=== PATIENT | male | born 1960 | race Two or more races ===

== ENCOUNTER 2016-06-16 20:39 | Inpatient (IN) | payer OTHER ==
[2016-06-16 21:05] VITALS: TEMP 97.5; BMI 15.6
[2016-06-16 21:55] LABS: URINE APPEARANCE CLEAR; URINE BILIRUBIN NEGATIVE (NEGATIVE); URINE BLOOD NEGATIVE (NEGATIVE); URINE COLOR STRAW; URINE GLUCOSE (UA) NEGATIVE (NEGATIVE); URINE KETONE NEGATIVE (NEGATIVE); URINE LEUK ESTERASE NEGATIVE (NEGATIVE); URINE NITRITE NEGATIVE (NEGATIVE); URINE PROTEIN NEGATIVE (NEGATIVE); URINE UROBILINOGEN NEGATIVE E.U./dl (0.2-1.0)
--- NOTE | 2016-06-16 22:00 | PDOC ---
History of Present Illness - History of Present Illness Initial Comments: 06/16/16 23:34 Patient is a 55 year old male with significant medical hx of borderline diabetes , HIV (CD4 count ~ 100), unknown VL, not on HAART therapy, Hep C, depression, and xanax / klonopin dependence who has been sent to the ED from [address] [place] [address] for one week of draining abdominal wounds. The patient was recently discharged after being admitted at [facility] for several days. There he received IV antibiotics and an abdomen/pelvis CT with noted hepatomegaly, kidney stones and gallstones. The patient was discharged on clindamycin and keflex, however the patient has not been compliant with his medications and states that he has not been able to pick them up from the pharmacy. He was then sent to [address] [place] [address] for heroin detox and was then referred to the ED for his draining wounds. The patients only complaint is abdominal pain from the wound drainage. The patient denies fever, chills, nausea, and vomiting. The patient does not have any primary doctors. <Heide Francis - Last Filed: 06/16/16 23:34> - General History Source: Patient Exam Limitations: No Limitations <Aubrey Brennan - Last Filed: 06/17/16 00:22> - General Chief Complaint: Pain Stated Complaint: ABDOMINAL PAIN Time Seen by Provider: 06/16/16 21:05 Past History <Heide Francis - Last Filed: 06/16/16 23:34> - Past Medical History Anemia: No Asthma: No Cardiac Disorders: No COPD: No Diabetes: Yes (Borderline diabetes no meds.) GI Disorders: No Disorders: No HTN: No Kidney Stones: No Suicide Attempt (Hx): No (DENIES) Seizures: No Other medical history: HIV - Reproductive History Testicular Surgery: No - Psycho/Social/Smoking Cessation Hx Anxiety: Yes Suicidal Ideation: No Smoking History: Former smoker Have you smoked in the past 12 months: No Number of Cigarettes Smoked Daily: 40 Cigars Per Day: 0 Information on smoking cessation initiated: No 'Breaking Loose' booklet given: 06/16/16 Hx Alcohol Use: No (DENIES) Drug/Substance Use Hx: Yes (XANAX/KLONOPIN) Substance Use Type: Tranquilizers Hx Substance Use Treatment: Yes ([facility], METHADONE 30 MG PO DAILY. LAST DOSE 01/06/15) <Aubrey Brennan - Last Filed: 06/17/16 00:22> - Past Medical History Allergies/Adverse Reactions: Allergies Allergy/AdvReac Type Severity Reaction Status Date / Time aspirin Allergy Severe Swelling Verified 01/06/15 11:07 Home Medications: Ambulatory Orders NK [No Known Home Medication] 01/06/15 Review of Systems - Review of Systems Comments:: 06/16/16 23:34 GENERAL/CONSTITUTIONAL: No fever or chills. No weakness. HEAD, EYES, EARS, NOSE AND THROAT: No change in vision. No ear pain or discharge. No sore throat. CARDIOVASCULAR: No chest pain or shortness of breath. RESPIRATORY: No cough, wheezing, or hemoptysis. GASTROINTESTINAL: Abdominal pain, abdominal wound drainage. No nausea, vomiting , diarrhea or constipation. GENITOURINARY: No dysuria, frequency, or change in urination. MUSCULOSKELETAL: No joint or muscle swelling or pain. No neck or back pain. SKIN: No rash NEUROLOGIC: No headache, vertigo, loss of consciousness, or change in strength/ sensation. <Heide Francis - Last Filed: 06/16/16 23:34> *Physical Exam - Vital Signs Last Vital Signs Temp Pulse Resp BP Pulse Ox 97.5 F L 52 L 17 143/80 100 06/16/16 20:50 06/16/16 20:50 06/16/16 20:50 06/16/16 20:50 06/16/16 20:50 - Physical Exam Comments: 06/16/16 23:35 GENERAL: Thin. Awake, alert, and fully oriented, in no acute distress HEAD: No signs of trauma EYES: PERRLA, EOMI, sclera anicteric, conjunctiva clear ENT: Auricles normal inspection, hearing grossly normal, nares patent, oropharynx clear without exudates. Moist mucosa NECK: Normal ROM, supple, no lymphadenopathy, JVD, or masses LUNGS: Breath sounds equal, clear to auscultation bilaterally. No wheezes, and no crackles HEART: Regular rate and rhythm, normal S1 and S2, no murmurs, rubs or gallops ABDOMEN: Two abdominal wound ulcers and drainages approximately 2cm x 3cm draining and tender. Soft, normoactive bowel sounds. EXTREMITIES: Normal range of motion, no edema. No clubbing or cyanosis. No cords, erythema, or tenderness NEUROLOGICAL: Cranial nerves II through XII grossly intact. Normal speech, normal gait SKIN: Warm, Dry, normal turgor, no rashes or lesions noted. ENDOCRINE: No increased thirst. No abnormal weight change. HEMATOLOGIC/LYMPHATIC: No anemia, easy bleeding, or history of blood clots. ALLERGIC/IMMUNOLOGIC: No hives or skin allergy. <Heide Francis - Last Filed: 06/16/16 23:34> - Vital Signs Last Vital Signs Temp Pulse Resp BP Pulse Ox 97.5 F L 52 L 17 143/80 100 06/16/16 20:50 06/16/16 20:50 06/16/16 20:50 06/16/16 20:50 06/16/16 20:50 <Aubrey Brennan - Last Filed: 06/17/16 00:22> Heart Score/ECG Review #1 ECG reviewed & interpreted by me at: 22:10 06/16/16 23:32 NSr 46, no std/munir, T wave flat avL, QTC 416 msec <Aubrey Brennan - Last Filed: 06/17/16 00:22> ED Treatment Course - LABORATORY CBC & Chemistry Diagram: 06/16/16 21:45 06/16/16 21:45 - ADDITIONAL ORDERS Additional order review: Laboratory Results 06/16/16 06/16/16 06/16/16 21:45 21:45 21:40 INR 1.32 H PTT (Actin FS) 39.4 H Sodium 141 Potassium 4.4 Chloride 106 Carbon Dioxide 28 Anion Gap 7 L BUN 15 D Creatinine 0.6 L Creat Clearance w eGFR > 60 Random Glucose 97 D Lactic Acid 1.764 Calcium 8.1 L Total Bilirubin 0.4 D AST 42 H D ALT 32 Alkaline Phosphatase 116 Creatine Kinase 52 Troponin I < 0.02 Total Protein 6.7 Albumin 2.9 L Urine Color Urine Appearance Urine pH Ur Specific [place] Urine Protein Urine Glucose (UA) Urine Ketones Urine Blood Urine Nitrite Urine Bilirubin Urine Urobilinogen Ur Leukocyte Esterase 06/16/16 21:35 INR PTT (Actin FS) Sodium Potassium Chloride Carbon Dioxide Anion Gap BUN Creatinine Creat Clearance w eGFR Random Glucose Lactic Acid Calcium Total Bilirubin AST ALT Alkaline Phosphatase Creatine Kinase Troponin I Total Protein Albumin Urine Color Straw Urine Appearance Clear Urine pH 6.0 Ur Specific [place] 1.009 Urine Protein Negative Urine Glucose (UA) Negative Urine Ketones Negative Urine Blood Negative Urine Nitrite Negative Urine Bilirubin Negative Urine Urobilinogen Negative Ur Leukocyte Esterase Negative 06/16/16 21:45 RBC 4.22 MCV 88.0 MCHC 33.7 RDW 13.2 MPV 8.9 D Neutrophils % 49.8 Lymphocytes % 26.9 Monocytes % 12.5 H Eosinophils % 9.7 H Basophils % 1.1 <Heide Francis - Last Filed: 06/16/16 23:34> - LABORATORY CBC & Chemistry Diagram: 06/16/16 21:45 06/16/16 21:45 - ADDITIONAL ORDERS Additional order review: Laboratory Results 06/16/16 21:35 Urine Color Straw Urine Appearance Clear Urine pH 6.0 Ur Specific [place] 1.009 Urine Protein Negative Urine Glucose (UA) Negative Urine Ketones Negative Urine Blood Negative Urine Nitrite Negative Urine Bilirubin Negative Urine Urobilinogen Negative Ur Leukocyte Esterase Negative - RADIOLOGY Radiology Studies Ordered: Category Date Time Status CHEST X-RAY PORTABLE* [RAD] Stat Radiology 06/16/16 21:16 Taken <Aubrey Brennan - Last Filed: 06/17/16 00:22> Medical Decision Making - Medical Decision Making 06/16/16 23:07 A portion of this note was documented by scribe services under my direction. I have reviewed the details of the note, within reason, and agree with the documentation with the following case summary and management plan written by me. Patient treated in the ED. Nursing notes are reviewed and incorporated into the medical decision-making. Vital signs reviewed. Peripheral IV access obtained by the nurse, laboratory studies are drawn and sent, reviewed and interpreted by myself. Vital Signs Temp Pulse Resp BP Pulse Ox 97.5 F L 52 L 17 143/80 100 06/16/16 20:50 06/16/16 20:50 06/16/16 20:50 06/16/16 20:50 06/16/16 20:50 55-year-old male with past medical history of HIV, CD4 count ~100, unknown VL, not on HAART therapy, Hepatitis C presents from [address] [place] [address] for draining wounds. Patient was recently emitted for several days at [facility]. I had contacted Dr. Jose Lo over at [facility]. Reports that the patient had a CAT scan abdomen pelvis performed. This was done on June 15 head demonstrated skin thickening and phlegmon with foci punctate of air in the skin but not in the abdomen. Patient also noted to have hepatomegaly, kidney stones and gallstones. Patient was then placed into the observation unit and was altered discharge and clindamycin and Keflex. The patient however, is not adherent to his medications does not remember. Patient reports that he has not been able to potato picker his medications. Patient was discharged sent to [address] [place] [address] for detox from heroin. However, the patient wounds were sent to the ER here for evaluation. He reports that this is going on for the last week. He is interested in going back on HAART therapy but has no doctors. Laboratory data reviewed. This shows no acute findings at this time. The patient appears chronically ill but nontoxic. We'll consult infectious disease in regards to disposition. 06/17/16 00:20 CBC, BMP 06/16/16 21:45 06/16/16 21:45 CMP Sodium 141 mmol/L (136-145) 06/16/16 21:45 Potassium 4.4 mmol/L (3.5-5.1) 06/16/16 21:45 Chloride 106 mmol/L (98-107) 06/16/16 21:45 Carbon Dioxide 28 mmol/L (21-32) 06/16/16 21:45 Anion Gap 7 (8-16) L 06/16/16 21:45 BUN 15 mg/dL (7-18) D 06/16/16 21:45 Creatinine 0.6 mg/dL (0.7-1.3) L 06/16/16 21:45 Creat Clearance w eGFR > 60 (>60) 06/16/16 21:45 Random Glucose 97 mg/dL (74-106) D 06/16/16 21:45 Lactic Acid 1.764 mmol/L (0.4-2.0) 06/16/16 21:45 Calcium 8.1 mg/dL (8.5-10.1) L 06/16/16 21:45 Total Bilirubin 0.4 mg/dL (0.2-1.0) D 06/16/16 21:45 AST 42 U/L (15-37) H D 06/16/16 21:45 ALT 32 U/L (12-78) 06/16/16 21:45 Alkaline Phosphatase 116 U/L (45-117) 06/16/16 21:45 Creatine Kinase 52 IU/L (39-308) 06/16/16 21:45 Troponin I < 0.02 ng/ml (0.00-0.05) 06/16/16 21:45 Total Protein 6.7 g/dl (6.4-8.2) 06/16/16 21:45 Albumin 2.9 g/dl (3.4-5.0) L 06/16/16 21:45 The patient has wounds, with AIDS (given CD4 ~100). The patient has poor follow up and will likely not get better with HAART therapy and appropriate antibiotics. He is not a reliable patient and would benefit from inpatient management. Paged Dr. Goldstein, awaiting response. Case discussed with [facility] hospitalist. Will admit to med/surg. Case discussed in detail with admitting physician including history, physical exam and ancillary studies. Admitting physician has assumed care for the patient, will follow all pending diagnostics and will complete the evaluation and treatment. <Aubrey Brennan - Last Filed: 06/17/16 00:22> *DC/Admit/Observation/Transfer - Attestations Scribe Attestion: 06/16/16 23:36 Documentation prepared by Heide Francis, acting as medical typist for Aubrey Brennan MD. <Heide Francis - Last Filed: 06/16/16 23:34> - Discharge Dispostion Admit: Yes <Aubrey Brennan - Last Filed: 06/17/16 00:22> Diagnosis at time of Disposition: Acquired immunodeficiency syndrome, Ulcerative lesion - Discharge Dispostion Condition at time of disposition: Fair
[2016-06-16 22:09] LABS: BASOPHIL 1.1 % (0-2.0); EOSINOPHIL 9.7 % (0-4.5); MCH 29.7 pg (25.7-33.7); MCHC 33.7 g/dl (32.0-35.9); MEAN PLT VOLUME 8.9 fl (7.5-11.1); NEUTROPHILS 49.8 % (42.8-82.8); PLATELET COUNT 79 K/MM3 (134-434); RDW 13.2 % (11.9-15.9); WHITE BLOOD COUNT 2.9 K/mm3 (4.0-10.0)
[2016-06-16 22:25] LABS: INR 1.32 (0.82-1.09); PROTHROMBIN TIME (PATIENT) 14.6 SEC (9.98-11.88)
[2016-06-16 22:28] LABS: ACTIVATED PTT 39.4 SECONDS (26.9-34.4)
[2016-06-16 22:31] LABS: ALBUMIN 2.9 g/dl (3.4-5.0); ANION GAP 7 (8-16); BILIRUBIN,TOTAL 0.4 mg/dL (0.2-1.0); CALCIUM 8.1 mg/dL (8.5-10.1); CO2 28 mmol/L (21-32); CREATININE 0.6 mg/dL (0.7-1.3); GLUCOSE,RANDOM 97 mg/dL (74-106); SGOT/AST 42 U/L (15-37); SGPT/ALT 32 U/L (12-78); TOT PROT 6.7 g/dl (6.4-8.2)
[2016-06-16 22:34] LABS: ALK PHOS 116 U/L (45-117); TROPONIN I < 0.02 ng/ml (0.00-0.05)
--- NOTE | 2016-06-17 00:35 | HP ---
Addendum entered and electronically signed by Tushar Ivory RES 06/17/16 04:17 : Abdominal abscess entered in error. Please note I meant to write Abdominal wound. Original Note: CHIEF COMPLAINT: abdominal abscess PCP: no PCP HISTORY OF PRESENT ILLNESS: 55 y/o M w/PMH of heroin use, HIV (last CD4 unknown as per pt/not on HAART), Hep C, depression, xanax and klonopin dependance, presents from [facility] ( where he was getting heroin detox) for abdominal abscess that is draining. Pt was recently discharged from [facility] where he was given IV abx and d/c'd with keflex and clinda but pt did not fill prescription. G+ cocci were found in abd culture at [facility]. Pt currently denies N/V/F/C, abdominal pain, CP, SOB. He does not know how long he has had the abscess for and states he does not remember what may have caused the abscess. ER course was notable for: (1) CXR (2) (3) PAST MEDICAL HISTORY: HIV, heroin use Social History: Smokinppd Alcohol: denies Drugs: heroin, xanax, klonopin Family History: non-contributory Allergies aspirin Allergy (Severe, Verified 01/06/15 11:07) Swelling HOME MEDICATIONS: Home Medications Medication Instructions Recorded NK [No Known Home Medication] 01/06/15 REVIEW OF SYSTEMS CONSTITUTIONAL: Absent: fever, chills, diaphoresis, generalized weakness, malaise, loss of appetite, weight change HEENT: Absent: rhinorrhea, nasal congestion, throat pain, throat swelling, difficulty swallowing, mouth swelling, ear pain, eye pain, visual changes CARDIOVASCULAR: Absent: chest pain, syncope, palpitations, irregular heart rate, lightheadedness , peripheral edema RESPIRATORY: Absent: cough, shortness of breath, dyspnea with exertion, orthopnea, wheezing, stridor, hemoptysis GASTROINTESTINAL: Absent: abdominal pain, abdominal distension, nausea, vomiting, diarrhea, constipation, melena, hematochezia GENITOURINARY: Absent: dysuria, frequency, urgency, hesitancy, hematuria, flank pain, genital pain MUSCULOSKELETAL: Absent: myalgia, arthralgia, joint swelling, back pain, neck pain SKIN: Absent: rash, itching, pallor HEMATOLOGIC/IMMUNOLOGIC: Absent: easy bleeding, easy bruising, lymphadenopathy, frequent infections ENDOCRINE: Absent: unexplained weight gain, unexplained weight loss, heat intolerance, cold intolerance NEUROLOGIC: Absent: headache, focal weakness or paresthesias, dizziness, unsteady gait, seizure, mental status changes, bladder or bowel incontinence PSYCHIATRIC: Absent: anxiety, depression, suicidal or homicidal ideation, hallucinations. PHYSICAL EXAMINATION Vital Signs - 24 hr 06/16/16 20:50 Temperature 97.5 F L Pulse Rate 52 L Respiratory 17 Rate Blood Pressure 143/80 O2 Sat by Pulse 100 Oximetry (%) GENERAL: Awake, alert, and fully oriented, cachetic. Does not respond to all questions asked, somewhat uncooperative. HEAD: Normal with no signs of trauma. EYES: sclera anicteric, conjunctiva clear. No lid lag. EARS, NOSE, THROAT: Ears normal, nares patent, Moist mucous membranes. LUNGS: Breath sounds equal, clear to auscultation bilaterally. No wheezes, and no crackles. No accessory muscle use. HEART: Regular rate and rhythm, normal S1 and S2 without murmur, rub or gallop. ABDOMEN: 2 abscesses noted - L sided one is approx 1.5inches in diameter and R sided one is appox 1 inch in diameter both draining sanguineous fluid. MUSCULOSKELETAL: Normal range of motion at all joints. No bony deformities or tenderness. LOWER EXTREMITIES: 2+ pulses, warm, well-perfused. No calf tenderness. No peripheral edema. NEUROLOGICAL: gait not observed PSYCHIATRIC: Does not respond to all questions asked. SKIN: Warm, dry, normal turgor, lesions as noted in abdomen above, normal capillary refill. Laboratory Results - last 24 hr 06/16/16 06/16/16 06/16/16 21:35 21:40 21:45 WBC 2.9 L D RBC 4.22 Hgb 12.5 Hct 37.1 MCV 88.0 MCHC 33.7 RDW 13.2 Plt Count 79 L MPV 8.9 D Neutrophils % 49.8 Lymphocytes % 26.9 Monocytes % 12.5 H Eosinophils % 9.7 H Basophils % 1.1 INR 1.32 H PTT (Actin FS) 39.4 H Sodium Potassium Chloride Carbon Dioxide Anion Gap BUN Creatinine Creat Clearance w eGFR Random Glucose Lactic Acid Calcium Total Bilirubin AST ALT Alkaline Phosphatase Creatine Kinase Troponin I Total Protein Albumin Urine Color Straw Urine Appearance Clear Urine pH 6.0 Ur Specific [place] 1.009 Urine Protein Negative Urine Glucose (UA) Negative Urine Ketones Negative Urine Blood Negative Urine Nitrite Negative Urine Bilirubin Negative Urine Urobilinogen Negative Ur Leukocyte Esterase Negative 06/16/16 06/16/16 21:45 21:45 WBC RBC Hgb Hct MCV MCHC RDW Plt Count MPV Neutrophils % Lymphocytes % Monocytes % Eosinophils % Basophils % INR PTT (Actin FS) Sodium 141 Potassium 4.4 Chloride 106 Carbon Dioxide 28 Anion Gap 7 L BUN 15 D Creatinine 0.6 L Creat Clearance w eGFR > 60 Random Glucose 97 D Lactic Acid 1.764 Calcium 8.1 L Total Bilirubin 0.4 D AST 42 H D ALT 32 Alkaline Phosphatase 116 Creatine Kinase 52 Troponin I < 0.02 Total Protein 6.7 Albumin 2.9 L Urine Color Urine Appearance Urine pH Ur Specific [place] Urine Protein Urine Glucose (UA) Urine Ketones Urine Blood Urine Nitrite Urine Bilirubin Urine Urobilinogen Ur Leukocyte Esterase ASSESSMENT/PLAN: 55 y/o M w/PMH of heroin use, HIV (last CD4 unknown as per pt/not on HAART), Hep C, depression, xanax and klonopin dependance, presents from [facility] ( where he was getting heroin detox) for abdominal abscess that is draining. -Abdominal abscess -clindamycin po 300 mg q6h for 7 days -appears to be a chronic wound. -wound dressing daily to be done by patient when at [facility]/at home -no wbc count, lactic acid 1.764 -G+ cocci in abd wound cx in [facility] -HIV -unknown cd4 count as per pt, not on haart -bactrim 160 mg po qd for PCP ppx -JOSEFINA Casiano/Dr. Jaimes as outpatient -Heroin use -Detox at [facility] -Dispo: -To be discharged to [facility] where pt is to do daily wound dressing. He is to take clinda 300 q6h for 7 days for abd wound. [facility] f/u after d/c from hospital during this admission. Visit type - Emergency Visit Emergency Visit: Yes Care time: The patient presented to the Emergency Department on the above date and was hospitalized for further evaluation of their emergent condition. - New Patient This patient is new to me today: Yes Date on this admission: 06/17/16 - Critical Care Critical Care patient: No
--- NOTE | 2016-06-17 00:36 | PN ---
<Haley Andino - Last Filed: 06/17/16 00:36> Teaching Attending Note Name of Resident: Tushar Ivory <Maura Chicas - Last Filed: 06/17/16 04:15> Teaching Attending Note ATTENDING PHYSICIAN STATEMENT I saw and evaluated the patient. I reviewed the resident's note and discussed the case with the resident. I agree with the resident's findings and plan as documented. SUBJECTIVE: The patient is a 55 yo M with a PMHx of HIV/AIDs (last known CD4 100), sent in from [address] [place] [address] who presented to the ED with weeping abdominal wounds for the past one week. The patient was recently discharged from [facility] several days ago for the same complaint where he received IV antibiotics and Abdomen/pelvis CT scan. The patient was prescribed however did not comply with her antibiotics(Clindamycin and Keflex). The patients only complaint is abdominal pain from the wound drainage. The patient denies fever, chills, nausea , and vomiting. Patient is uncooperative and theefore limited history available. History taken from ED documentation and as per conversation with [facility] ED physician who reviewed patient's recent stay. PMHx: heroin abuse, borderline diabetes, unknown VL, Hepatitis C, depression, xanax and klonopin dependence PSHx: None Social Hx: Heroin abuse OBJECTIVE: Last Vital Signs Temp Pulse Resp BP Pulse Ox 97.5 F L 52 L 17 143/80 100 06/16/16 20:50 06/16/16 20:50 06/16/16 20:50 06/16/16 20:50 06/16/16 20:50 GENERAL: +Cachectic.Awake, alert, and fully oriented, in no acute distress HEENT: + Temporal wasting. Atraumatic. PERRLA, EOMI. Moist mucosa. No JVD LUNGS: No distress, speaks full sentences, clear to auscultation bilaterally HEART: Regular rate and rhythm, normal S1 and S2, no murmurs, rubs or gallops, peripheral pulses normal and equal bilaterally. ABDOMEN: + 2 abdominal wall wounds noted: L sided one is 1.5 inches in diameter and R sided wound 1 inch in diameter. Soft, nontender, normoactive bowel sounds. No guarding, no rebound. No masses EXTREMITIES: Normal inspection, Normal range of motion, no edema. No clubbing or cyanosis. NEUROLOGICAL: Cranial nerves II through XII grossly intact. Normal speech, gait deferred. No focal sensorimotor deficits SKIN: Warm, Dry, normal turgor, no rashes or lesions noted. CBCD WBC 2.9 K/mm3 (4.0-10.0) L D 06/16/16 21:45 RBC 4.22 M/mm3 (4.00-5.60) 06/16/16 21:45 Hgb 12.5 GM/dL (11.7-16.9) 06/16/16 21:45 Hct 37.1 % (35.4-49) 06/16/16 21:45 MCV 88.0 fl (80-96) 06/16/16 21:45 MCHC 33.7 g/dl (32.0-35.9) 06/16/16 21:45 RDW 13.2 % (11.9-15.9) 06/16/16 21:45 Plt Count 79 K/MM3 (134-434) L 06/16/16 21:45 MPV 8.9 fl (7.5-11.1) D 06/16/16 21:45 CMP Sodium 141 mmol/L (136-145) 06/16/16 21:45 Potassium 4.4 mmol/L (3.5-5.1) 06/16/16 21:45 Chloride 106 mmol/L (98-107) 06/16/16 21:45 Carbon Dioxide 28 mmol/L (21-32) 06/16/16 21:45 Anion Gap 7 (8-16) L 06/16/16 21:45 BUN 15 mg/dL (7-18) D 06/16/16 21:45 Creatinine 0.6 mg/dL (0.7-1.3) L 06/16/16 21:45 Creat Clearance w eGFR > 60 (>60) 06/16/16 21:45 Calcium 8.1 mg/dL (8.5-10.1) L 06/16/16 21:45 Total Bilirubin 0.4 mg/dL (0.2-1.0) D 06/16/16 21:45 AST 42 U/L (15-37) H D 06/16/16 21:45 ALT 32 U/L (12-78) 06/16/16 21:45 Alkaline Phosphatase 116 U/L (45-117) 06/16/16 21:45 Total Protein 6.7 g/dl (6.4-8.2) 06/16/16 21:45 Albumin 2.9 g/dl (3.4-5.0) L 06/16/16 21:45 ASSESSMENT AND PLAN: The patient is a 55 yo M with a PMHx of HIV (CD4 count ~100) who presents with abdominal wounds. - Bactrum 160 mg daily for prophylaxis against PCP - Clindamycin 300 mg Q6 for 7 days - Patient unsure of last CD4 count - Daily wound care-- Keep area dry and clean - Refer to ID clinic at the [facility] and treat for HIV. Documentation prepared by Maura Chicas, acting as medical records library professor for Haley Andino MD.
[2016-06-17 01:32] VITALS: BP 149/85; PULSE 73
--- NOTE | 2016-06-17 01:44 | DS ---
Physical Exam: SUBJECTIVE: Patient seen and examined see H&P OBJECTIVE: Vital Signs Period Temp Pulse Resp BP Sys/Palmer Pulse Ox Last 24 Hr 97.5 F 52 17 143/80 100 PHYSICAL EXAM GENERAL: The patient is awake, alert, and fully oriented, in no acute distress. sleeping but arousable, slightly uncooperative. cachetic. HEAD: Normal with no signs of trauma.temporal wasting. EYES: PERRL, extraocular movements intact, sclera anicteric, conjunctiva clear. ENT: Ears normal, nares patent, oropharynx clear without exudates, moist mucous membranes. NECK: Trachea midline, full range of motion, supple. LUNGS: Breath sounds equal, clear to auscultation bilaterally, no wheezes, no crackles, no accessory muscle use. HEART: Regular rate and rhythm, S1, S2 without murmur, rub or gallop. ABDOMEN: 2 wounds ( LLQ 4 cm diameter and RLL 2.5 cm )to muscle, with granulation and serous drainage and hyperpigmented around wound. Soft, nontender , nondistended, normoactive bowel sounds, no guarding, no rebound, no hepatosplenomegaly, no masses. EXTREMITIES: 2+ pulses, warm, well-perfused, no edema. NEUROLOGICAL: Cranial nerves II through XII grossly intact. Normal speech, gait not observed. PSYCH: Normal mood, normal affect. SKIN: Warm, dry, normal turgor, no rashes or lesions noted. LABS Laboratory Results - last 24 hr 06/16/16 06/16/16 06/16/16 21:35 21:40 21:45 WBC 2.9 L D RBC 4.22 Hgb 12.5 Hct 37.1 MCV 88.0 MCHC 33.7 RDW 13.2 Plt Count 79 L MPV 8.9 D Neutrophils % 49.8 Lymphocytes % 26.9 Monocytes % 12.5 H Eosinophils % 9.7 H Basophils % 1.1 INR 1.32 H PTT (Actin FS) 39.4 H Sodium Potassium Chloride Carbon Dioxide Anion Gap BUN Creatinine Creat Clearance w eGFR Random Glucose Lactic Acid Calcium Total Bilirubin AST ALT Alkaline Phosphatase Creatine Kinase Troponin I Total Protein Albumin Urine Color Straw Urine Appearance Clear Urine pH 6.0 Ur Specific [place] 1.009 Urine Protein Negative Urine Glucose (UA) Negative Urine Ketones Negative Urine Blood Negative Urine Nitrite Negative Urine Bilirubin Negative Urine Urobilinogen Negative Ur Leukocyte Esterase Negative 06/16/16 06/16/16 21:45 21:45 WBC RBC Hgb Hct MCV MCHC RDW Plt Count MPV Neutrophils % Lymphocytes % Monocytes % Eosinophils % Basophils % INR PTT (Actin FS) Sodium 141 Potassium 4.4 Chloride 106 Carbon Dioxide 28 Anion Gap 7 L BUN 15 D Creatinine 0.6 L Creat Clearance w eGFR > 60 Random Glucose 97 D Lactic Acid 1.764 Calcium 8.1 L Total Bilirubin 0.4 D AST 42 H D ALT 32 Alkaline Phosphatase 116 Creatine Kinase 52 Troponin I < 0.02 Total Protein 6.7 Albumin 2.9 L Urine Color Urine Appearance Urine pH Ur Specific [place] Urine Protein Urine Glucose (UA) Urine Ketones Urine Blood Urine Nitrite Urine Bilirubin Urine Urobilinogen Ur Leukocyte Esterase HOSPITAL COURSE: [facility] called and chart reviewed, patient had WBC 3.3, (06/15/2016 ) blood cultures was Gram positive cocci in clusters and was given Clindamycin and Keflex. Repeat labs WBC 2.9. Patient discharged to [facility]. Date of Admission:06/16/16 Date of Discharge: 06/17/16 Minutes to complete discharge: 55 Discharge Summary Reason For Visit: ABDOMINAL PAIN Current Active Problems AIDS (Acute) Ulcer (Acute) Condition: Fair - Instructions Diet, Activity, Other Instructions: Patient discharged and transferred to [facility] with referral to [place] doctor/[facility] for evaluation and treatment of HIV/AIDS. [id number]_SMX 160mg daily Clindamycin 300mg po QID for 7 days. Daily wound dressing and keep dry. Referrals: Criss Jaimes MD [Staff Physician] - Disposition: TRANSFER ACUTE CARE/OTHER HOSP - Home Medications Comprehensive Discharge Medication List: Ambulatory Orders Clindamycin [Cleocin -] 300 mg PO Q6HPO #28 capsule 06/17/16 Sulfamethoxazole/Trimethoprim [Bactrim Ds Tablet] 1 each PO DAILY #90 tablet Problem List - Problems (1) Open abdominal wall wound Code(s): S31.109A - UNSP OPN WND ABD WALL, UNSP Q W/O PENET PERIT CAV, INIT Qualifiers: Encounter type: initial encounter Qualified Code(s): S31.109A - Unspecified open wound of abdominal wall, unspecified quadrant without penetration into peritoneal cavity, initial encounter This patient is new to me today: Yes Date on this admission: 06/17/16 Emergency Visit: Yes Care time: The patient presented to the Emergency Department on the above date and was hospitalized for further evaluation of their emergent condition. Critical Care patient: No - Discharge Referral [facility]erred to [facility] No
--- NOTE | 2016-06-17 09:39 | EKG ---
Test Reason : Blood Pressure : / mmHG Vent. Rate : 046 BPM Atrial Rate : 046 BPM P-R Int : 142 ms QRS Dur : 074 ms QT Int : 476 ms P-R-T Axes : 066 029 055 degrees QTc Int : 416 ms POOR DATA QUALITY, INTERPRETATION MAY BE ADVERSELY AFFECTED SINUS BRADYCARDIA CANNOT RULE OUT SEPTAL INFARCT , AGE UNDETERMINED ABNORMAL ECG NO PREVIOUS ECGS AVAILABLE Confirmed by AMILCAR JIMENEZ MD ([id number]) on 06/17/2016 9:38:55 AM Referred By: Confirmed By:AMILCAR JIMENEZ MD
== END 2016-06-17 01:41 | disposition other institution (70) | DRG 894 ==
LOC: JER 20:39 → JERBED 06-17 00:22 → UNDOADMIN 06-17 00:55
PROVIDERS: ADMIT Internal Medicine; ATTEND Internal Medicine
DX: L02.211 Cutaneous abscess of abdominal wall (principal); B20 Human immunodeficiency virus [HIV] disease; F14.20 Cocaine dependence, uncomplicated; R73.03 Prediabetes; F32.9 Major depressive disorder, single episode, unspecified; B19.20 Unspecified viral hepatitis C without hepatic coma; F19.20 Other psychoactive substance dependence, uncomplicated; F17.210 Nicotine dependence, cigarettes, uncomplicated
CPT/HCPCS: 36415; 71010-TC; 80053; 81003; 82550; 83605; 84484; 85025; 85610; 85730; 87040; 87086; 93005; 93010; 99283-25

== ENCOUNTER 2016-06-17 02:34 | Inpatient (IN) | payer OTHER ==
--- NOTE | 2016-06-17 02:45 | HP ---
COWS - Scale Resting Pulse: 0= [place] 80 or Below Sweatin= No chills or Flushing Restless Observation: 5= Unable to Sit Still Pupil Size: 1= Pupils >than Normal Bone or Joint Aches: 4=Acute Joint/Muscle Pain Runny Nose/ Eye Tearin= Runny Nose/Eyes GI Upset > 30mins: 1= Stomach Cramp Tremor Observation: 2= Slight Tremor Visible Yawning Observation: 0= None Anxiety or Irritability: 4=Extreme Anxiety Goose Flesh Skin: 0=Smooth Skin COWS Score: 19 CIWA Score - CIWA Score Nausea/Vomitin-No Nausea/No Vomiting Muscle Tremors: 4-Moderate,w/Arms Extend Anxiety: 5 Agitation: 5 Paroxysmal Sweats: No Perspiration Orientation: 1-Uncertain about Date Tacttile Disturbances: 0-None Auditory Disturbances: 0-None Visual Disturbances: 0-None Headache: 0-None Present CIWA-Ar Total Score: 15 Admission ROS BHS - HPI Chief Complaint: C/O WITHDRAWAL SX'S. SEEKING DETOX TXMENT Allergies/Adverse Reactions: Allergies Allergy/AdvReac Type Severity Reaction Status Date / Time aspirin Allergy Severe Swelling Verified 06/17/16 02:38 History of Present Illness: 55 Y.O MALE WITH OPIOID DEPENDENCE ADMITTED TO DETOX. CLIENT RETURNS FROM [facility] AFTER BEING MEDICALLY CLEARED FOR DRAINING ABD ABCESS. RX TO START CLINDAMYCIN AND BACTRIM PO. DENIES ANY SIGNIFICANT CLEAN TIME. HE IS KNOWN TO [facility]. ER NOTE: [facility] called and chart reviewed, patient had WBC 3.3, (06/15/2016 ) blood cultures was Gram positive cocci in clusters and was given Clindamycin and Keflex. Repeat labs WBC 2.9. Patient discharged to [facility]. -Abdominal abscess -clindamycin po 300 mg q6h for 7 days -appears to be a chronic wound. -wound dressing daily to be done by patient when at [facility]/at home -no wbc count, lactic acid 1.764 -G+ cocci in abd wound cx in [facility] -HIV -unknown cd4 count as per pt, not on haart -bactrim 160 mg po qd for PCP ppx -[facility]/Dr. Jaimes as outpatient -Heroin use -Detox at [facility] -Dispo: -To be discharged to [facility] where pt is to do daily wound dressing. He is to take clinda 300 q6h for 7 days for abd wound. [facility] f/u after d/c from hospital during this admission. Exam Limitations: No Limitations - Ebola screening Have you traveled outside of the country in the last 21 days: No Have you been sick,other than usual withdrawal symptoms: No Do you have a fever: No - Review of Systems Constitutional: Chills, Malaise, Night Sweats, Changes in sleep EENT: reports: Nose Congestion Respiratory: reports: No Symptoms reported Cardiac: reports: No Symptoms Reported GI: reports: Nausea, Poor Appetite : reports: No Symptoms Reported Musculoskeletal: reports: Back Pain, Joint Pain Integumentary: reports: Lesions (ABD ULCER LIKE LESIONS) Neuro: reports: No Symptoms reported Endocrine: reports: No Symptoms Reported Hematology: reports: No Symptoms Reported Psychiatric: reports: Anxious, Depressed Other Systems: Reviewed and Negative Patient History - Patient Medical History Hx Anemia: No Hx Asthma: No Hx Chronic Obstructive Pulmonary Disease (COPD): No Hx Cancer: No Hx Cardiac Disorders: No Hx Congestive Heart Failure: No Hx Hypertension: No Hx Hypercholesterolemia: No Hx Pacemaker: No HX Cerebrovascular Accident: No Hx Seizures: No Hx Dementia: No Hx Diabetes: No Hx Gastrointestinal Disorders: No Hx Liver Disease: No Hx Genitourinary Disorders: No Hx Sexually Transmitted Disorders: No Hx Renal Disease (ESRD): No Hx Thyroid Disease: No Hx Human Immunodeficiency Virus (HIV): Yes (NO MED MGMT) Hx Hepatitis C: Yes Hx Depression: Yes Hx Suicide Attempt: No Hx Bipolar Disorder: No Hx Schizophrenia: No Other Medical History: ANXIETY; ABD ULCER LESIONS - Patient Surgical History Past Surgical History: No - PPD History Previous Implant?: Yes Documented Results: Negative w/o proof Implanted On Prior [facility] Admission?: No PPD to be Administered?: Yes - Smoking Cessation Smoking history: Current every day smoker Have you smoked in the past 12 months: No Aproximately how many cigarettes per day: 40 Cigars Per Day: 0 Hx Chewing Tobacco Use: No Initiated information on smoking cessation: Yes 'Breaking Loose' booklet given: 06/17/16 - Substance & Tx. History Hx Alcohol Use: No Hx Substance Use: Yes Substance Use Type: Cocaine (DENIES USE), Heroin, Opiates (OXY), Tranquilizers ( XANAX, KLONOPINS) - Substances Abused HEROIN Route: Inhalation Frequency: Daily Amount used: 5 BAGS Age of first use: 20 Date of Last Use: 06/15/16 OXYCONTIN/PERCOCET Route: Oral Frequency: 3-6 times per week Amount used: 30 MG Age of first use: 50 Date of Last Use: 06/14/16 XANAX Route: Oral Frequency: Daily Amount used: 2 MG Age of first use: 50 Date of Last Use: 06/15/16 Family Disease History - Family Disease History Family Disease History: [place]: Father (), Other: Mother (MENTAL PROBLEM) Admission Physical Exam [facility] - Physical General Appearance: Yes: Disheveled, Tremorous, Irritable HEENTM: Yes: EOMI, Normocephalic, Normal Voice, MILEY, Pharynx Normal, Rhinorrhea Respiratory: Yes: Chest Non-Tender, Lungs Clear, Normal Breath Sounds, No Respiratory Distress, No Accessory Muscle Use Neck: Yes: No masses,lesions,Nodules, Supple, Trachea in good position Breast: Yes: Breast Exam Deferred Cardiology: Yes: Regular Rhythm, Regular Rate, S1, S2 Abdominal: Yes: Normal Bowel Sounds, Non Tender, Soft, Other (2 ULCERS NOTED) Genitourinary: Yes: Within Normal Limits Back: Yes: Normal Inspection Musculoskeletal: Yes: full range of Motion, Gait Steady Extremities: Yes: Normal Capillary Refill, Normal Range of Motion, Non-Tender, Tremors Neurological: Yes: putty 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 II-XII NML intact, Alert, Motor Strength 5/5, Normal Mood /Affect Integumentary: Yes: Normal Color, Dry, Warm, Other (2 abscesses noted anterior abd - L sided one is approx 1.5inches in diameter and R sided one is appox 1 inch in diameter both draining sanguineous fluid and granulating tissue) Lymphatic: Yes: Within Normal Limits - Diagnostic (1) AIDS Current Visit: Yes Status: Chronic (2) Ulcer Current Visit: Yes Status: Acute Comment: ABDOMINAL WALL ULCER X2 (3) Sedative, hypnotic, or anxiolytic withdrawal Current Visit: Yes Status: Chronic (4) Opioid dependence with withdrawal Current Visit: Yes Status: Chronic (5) Nicotine dependence Current Visit: Yes Status: Acute Qualifiers: Nicotine product type: cigarettes Substance use status: uncomplicated Qualified Code(s): F17.210 - Nicotine dependence, cigarettes, uncomplicated Cleared for Admission [facility] - Detox or Rehab [facility] Level of Care: Medically Managed Detox Regimen/Protocol: Methadone/Valium [facility] Breath Alcohol Content Breath Alcohol Content: 0 Vital Signs - Vital Signs Vital Signs Refused: Yes Temperature: 96.5 F Temperature Source: Oral Pulse Rate: 71 Respiratory Rate: 20 Blood Pressure: 104/66 BP Location: Left Arm Blood Pressure Position: Sitting - Height Height: 5 ft 7 in - Weight Weight: 54.431 kg Weight Measurement Method: Standing Scale Body Mass Index (BMI): 18.8 - Bowel Function Bowel Movement: No Urine Drug Screen - Test Device Lot Number: [id number] Expiration Date: 03/02/18 - Control Is Test Valid: Yes - Results Drug Screen Negative: No Urine Drug Screen Results: CORAZON-Cocaine, OPI-Opiates, BZO-Benzodiazepines, OXY- Oxycodone
[2016-06-17 02:50] VITALS: BMI 18.8
[2016-06-17] MEDS ORDERED: NICOTINE POLACRILEX 4 MG GUM BC PRN (03:05)
[2016-06-17] MEDS ORDERED: MENTHOL/PHENOL 1 EACH UD MM PRN (03:05)
[2016-06-17] MEDS ORDERED: LOPERAMIDE HCL 2 MG CAPSULE PO PRN (03:05)
[2016-06-17] MEDS ORDERED: METHADONE HCL 10 MG TABLET (FOR DETOX USE ONLY) PO ONE ×3 (03:05→23:00)
[2016-06-17] MEDS ORDERED: MAGNESIUM CITRATE 300 ML BOTTLE PO PRN (03:05)
[2016-06-17] MEDS ORDERED: P-EPHED 60MG/TRIPROLIDI 2.5MG TABLET PO PRN (03:05)
[2016-06-17] MEDS ORDERED: hydrOXYzine PAMOATE 50 MG CAPSULE (FP) PO PRN (03:05)
[2016-06-17] MEDS ORDERED: diazePAM 5 MG TABLET PO ONE (03:05)
[2016-06-17] MEDS ORDERED: MAG HYDROX/AL HYDROX/SIMETH 30 ML UNIT-DOSE CUP PO PRN (03:05)
[2016-06-17] MEDS ORDERED: guaiFENesin/D-METHORPHAN HB 10 ML UNIT-DOSE CUPS PO PRN (03:05)
[2016-06-17] MEDS ORDERED: MAGNESIUM HYDROX 2400MG/30ML ORAL SUSPENSION 30 ML CUP PO PRN (03:05)
[2016-06-17] MEDS: CLINDAMYCIN HCL 150 MG CAPSULE (FP) PO SCH ×4 (06:40→23:35)
[2016-06-17] MEDS: diazePAM 5 MG TABLET PO SCH ×3 (06:55→22:27)
[2016-06-17] MEDS: ACETAMINOPHEN 325 MG TABLET (FP) PO PRN (07:28)
[2016-06-17] MEDS: SULFAMETHOXAZOLE/TRIMETHOPRIM 800MG/160MG D.S. TABLET PO SCH (10:11)
[2016-06-17] MEDS: NICOTINE 21 MG/24 HOURS TOPICAL PATCH TD SCH (10:11)
[2016-06-17] MEDS: diazePAM 5 MG TABLET PO PRN ×2 (10:11→15:16)
[2016-06-17] MEDS: PRENATAL VITAMINS W/ FOLIC ACID TABLET (FP) PO SCH (10:11)
[2016-06-17 10:43] LABS: ALK PHOS 129 U/L (45-117); ANION GAP 8 (8-16); BILIRUBIN,TOTAL 0.5 mg/dL (0.2-1.0); CALCIUM 8.2 mg/dL (8.5-10.1); CO2 25 mmol/L (21-32); CREATININE 0.6 mg/dL (0.7-1.3); GLUCOSE,RANDOM 230 mg/dL (74-106); SGPT/ALT 35 U/L (12-78); TOT PROT 6.9 g/dl (6.4-8.2)
[2016-06-17 10:49] LABS: SGOT/AST 49 U/L (15-37)
[2016-06-17 11:03] LABS: MCH 30.8 pg (25.7-33.7); MCHC 35.1 g/dl (32.0-35.9); MEAN CELL VOLUME 87.6 fl (80-96); PLATELET COUNT 86 K/MM3 (134-434); RDW 13.4 % (11.9-15.9); WHITE BLOOD COUNT 3.7 K/mm3 (4.0-10.0)
--- NOTE | 2016-06-17 11:35 | PN ---
[facility] CIWA - CIWA Score Nausea/Vomitin-No Nausea/No Vomiting Muscle Tremors: 4-Moderate,w/Arms Extend Anxiety: 3 Agitation: 4-Moderately Restless Paroxysmal Sweats: 3 Orientation: 0-Oriented Tacttile Disturbances: 0-None Auditory Disturbances: 0-None Visual Disturbances: 0-None Headache: 1-Very Mild CIWA-Ar Total Score: 15 BHS COWS - Scale Resting Pulse: 0= [place] 80 or Below Sweatin=Flushed/Facial Moisture Restless Observation: 1= Difficult to Sit Still Pupil Size: 0= Normal to Room Light Bone or Joint Aches: 2= Severe Diffuse Aches Runny Nose/ Eye Tearin= Nasal Congestion GI Upset > 30mins: 0= None Tremor Observation of Outstretched Hands: 2= Slight Tremor Visible Yawning Observation: 0= None Anxiety or Irritability: 2=Irritable/Anxious Goose Flesh Skin: 0=Smooth Skin COWS Score: 10 S Progress Note (SOAP) Subjective: irritable sweats shakes interrupted sleep agitation anxiety chills Objective: 06/17/16 11:33 Vital Signs Temperature 96.6 F L 06/17/16 10:00 Pulse Rate 80 06/17/16 10:00 Respiratory Rate 16 06/17/16 10:00 Blood Pressure 103/70 06/17/16 10:00 O2 Sat by Pulse Oximetry (%) Laboratory Tests 06/17/16 06/17/16 07:30 09:30 WBC 3.7 L RBC 4.43 Hgb 13.6 Hct 38.8 MCV 87.6 MCHC 35.1 RDW 13.4 Plt Count 86 L MPV 10.0 D Sodium 138 Potassium 4.7 Chloride 105 Carbon Dioxide 25 Anion Gap 8 BUN 16 Creatinine 0.6 L Creat Clearance w eGFR > 60 Random Glucose 230 H D Calcium 8.2 L Total Bilirubin 0.5 D AST 49 H ALT 35 Alkaline Phosphatase 129 H Total Protein 6.9 Albumin 3.0 L rest labs pending awake/alert ambulating no acute distress wound assess; minimal serous fluid noted Assessment: 06/17/16 11:35 withdrawal sx Plan: continue detox increase fluids continue wound care as ordered
[2016-06-17] MEDS ORDERED: INFLUENZA VACCINE 45 MCG/0.5 ML (MDV 16-17) IM ONE (12:00)
--- NOTE | 2016-06-17 16:21 | PN ---
[facility] Progress Note Note: Psychiatry Attending's note : Second attempt for psychiatric interview. Patient is found sedated.Asleep.Resting comfortably. Was approached three hours earlier (first attempt). Mr Giron was found in the lavatory.Shaving.Not available. He asked this specification writer to come back at a later time. Nursing staff made aware.Examination deferred.
[2016-06-17] MEDS: diphenhydrAMINE HCL 50 MG CAPSULE PO PRN (22:26)
[2016-06-17] MEDS: THIAMINE HCL 100 MG TABLET (FP) PO SCH (23:37)
[2016-06-18] MEDS: diazePAM 5 MG TABLET PO SCH ×3 (05:53→22:42)
[2016-06-18] MEDS: CLINDAMYCIN HCL 150 MG CAPSULE (FP) PO SCH ×3 (05:54→18:01)
[2016-06-18] MEDS ORDERED: METHADONE HCL 10 MG TABLET (FOR DETOX USE ONLY) PO SCH (10:00)
[2016-06-18] MEDS: SULFAMETHOXAZOLE/TRIMETHOPRIM 800MG/160MG D.S. TABLET PO SCH (10:34)
[2016-06-18] MEDS: NICOTINE 21 MG/24 HOURS TOPICAL PATCH TD SCH (10:34)
[2016-06-18] MEDS: PRENATAL VITAMINS W/ FOLIC ACID TABLET (FP) PO SCH (10:34)
[2016-06-18] MEDS: diazePAM 5 MG TABLET PO PRN ×2 (10:37→18:21)
--- NOTE | 2016-06-18 14:03 | PN ---
[facility] CIWA - CIWA Score Nausea/Vomitin Muscle Tremors: 3 Anxiety: 3 Agitation: 2 Paroxysmal Sweats: 1-Minimal Palms Moist Orientation: 0-Oriented Tacttile Disturbances: 1-Very Mild Itch/Numbness Auditory Disturbances: 1-Very Mild Visual Disturbances: 1-Very Mild Sensitivity Headache: 2-Mild CIWA-Ar Total Score: 17 BHS COWS - Scale Resting Pulse: 1= [place] 81-100 Sweatin= Chills/Flushing Restless Observation: 3= Extraneous Movement Pupil Size: 1= Pupils >than Normal Bone or Joint Aches: 2= Severe Diffuse Aches Runny Nose/ Eye Tearin= Runny Nose/Eyes GI Upset > 30mins: 3= Vomiting/Diarrhea Tremor Observation of Outstretched Hands: 2= Slight Tremor Visible Yawning Observation: 1= 1-2x During Session Anxiety or Irritability: 2=Irritable/Anxious Goose Flesh Skin: 0=Smooth Skin COWS Score: 18 [facility] Progress Note (SOAP) Subjective: ALERT,IRRITABLE,ANXIOUS,INTERRUPTED SLEEP,PAIN IN THE BODY AND BACK,TREMOR Objective: 06/18/16 14:02 Vital Signs Temperature 97.2 F L 06/18/16 10:39 Pulse Rate 95 H 06/18/16 10:39 Respiratory Rate 18 06/18/16 10:39 Blood Pressure 97/58 06/18/16 10:39 O2 Sat by Pulse Oximetry (%) EKG SINUS BRADYCARDIA 43/MIN NO CHEST PAIN,NO SOB,NO DIZZINESS 06/18/16 14:03 Laboratory Last Values WBC 3.7 K/mm3 (4.0-10.0) L 06/17/16 09:30 RBC 4.43 M/mm3 (4.00-5.60) 06/17/16 09:30 Hgb 13.6 GM/dL (11.7-16.9) 06/17/16 09:30 Hct 38.8 % (35.4-49) 06/17/16 09:30 MCV 87.6 fl (80-96) 06/17/16 09:30 MCHC 35.1 g/dl (32.0-35.9) 06/17/16 09:30 RDW 13.4 % (11.9-15.9) 06/17/16 09:30 Plt Count 86 K/MM3 (134-434) L 06/17/16 09:30 MPV 10.0 fl (7.5-11.1) D 06/17/16 09:30 Sodium 138 mmol/L (136-145) 06/17/16 07:30 Potassium 4.7 mmol/L (3.5-5.1) 06/17/16 07:30 Chloride 105 mmol/L (98-107) 06/17/16 07:30 Carbon Dioxide 25 mmol/L (21-32) 06/17/16 07:30 Anion Gap 8 (8-16) 06/17/16 07:30 BUN 16 mg/dL (7-18) 06/17/16 07:30 Creatinine 0.6 mg/dL (0.7-1.3) L 06/17/16 07:30 Creat Clearance w eGFR > 60 (>60) 06/17/16 07:30 Random Glucose 230 mg/dL (74-106) H D 06/17/16 07:30 Calcium 8.2 mg/dL (8.5-10.1) L 06/17/16 07:30 Total Bilirubin 0.5 mg/dL (0.2-1.0) D 06/17/16 07:30 AST 49 U/L (15-37) H 06/17/16 07:30 ALT 35 U/L (12-78) 06/17/16 07:30 Alkaline Phosphatase 129 U/L (45-117) H 06/17/16 07:30 Total Protein 6.9 g/dl (6.4-8.2) 06/17/16 07:30 Albumin 3.0 g/dl (3.4-5.0) L 06/17/16 07:30 RPR Titer Nonreactive (NONREACTIVE) 06/17/16 07:30 LABS PENDING Assessment: 06/18/16 14:04 WITHDRAWAL SYMPTOM Plan: CONTINUE DETOX,INITIAL GLUCOSE 230,BGM MONITORING
--- NOTE | 2016-06-18 15:43 | CONSULT ---
[facility] Psychiatric Consult - Data Date of interview: 06/18/16 Admission source: [facility] Identifying data: Readmission to [facility] for this 55 y/o male seeking detox treatment for heroin,benzodiazepine (xanax/klonopin) and cocaine dependence.Patient is single without children,domiciled,unemployed and supported on Public Assistance. Substance Abuse History: - Smoking Cessation. Smoking history: Current every day smoker. Have you smoked in the past 12 months: No. Aproximately how many cigarettes per day: 40. Cigars Per Day: 0. Hx Chewing Tobacco Use: No. Initiated information on smoking cessation: Yes. 'Breaking Loose' booklet given : 06/17/16. - Substance & Tx. History. Hx Alcohol Use: No. Hx Substance Use: Yes. Substance Use Type: Cocaine (DENIES USE), Heroin, Opiates (OXY), Tranquilizers (XANAX, KLONOPINS). - Substances Abused. HEROIN. Route: Inhalation. Frequency: Daily. Amount used: 5 BAGS. Age of first use: 20. Date of Last Use: 06/15/16. OXYCONTIN/PERCOCET. Route: Oral. Frequency: 3- 6 times per week. Amount used: 30 MG. Age of first use: 50. Date of Last Use : 06/14/16. XANAX. Route: Oral. Frequency: Daily. Amount used: 2 MG. Age of first use: 50. Date of Last Use: 06/15/16. Confirmed by the patient.He also admits to using cocaine. Medical History: HIV/AIDS since 1999 (non-compliant with ART),hepatitis C and acute abdominal wounds. Psychiatric History: Patients suggests a history of 4-5 psychiatric hospitalizations.Known to [facility].Patient states that he " has no idea about diagnosis." Mr Giron is a marginally cooperative and distant historian.No OPD care.Off psychotropic medications (prozac) for months as per own decision.Noted [facility] report of a suicide attempt,two years ago,via hanging, during his incarceration.Patient declines psycotropic medications other than those necessary for detoxification purposes. Physical/Sexual Abuse/Trauma History: Patient denies. Additional Comment: Urine Drug Screen Results: CORAZON-Cocaine, OPI-Opiates, BZO- Benzodiazepines, OXY-Oxycodone.Noted. Mental Status Exam - Mental Status Exam Alert and Oriented to: Time, Place, Person Cognitive Function: Grossly Intact Patient Appearance: Well Groomed Mood: Withdrawn, Irritable Affect: Constricted Patient Behavior: Passive, Sedated, Fatigued Speech Pattern: Clear Voice Loudness: Moderately Soft/Quiet Thought Process: Goal Oriented Thought Disorder: Not Present Hallucinations: Denies Suicidal Ideation: Denies Homicidal Ideation: Denies Insight/Judgement: Poor Sleep: Fair Appetite: Poor, Weight loss Muscle strength/Tone: Normal Gait/Station: Normal Psychiatric Findings - Problem List ([place] 1, 2,3) (1) Opioid dependence with withdrawal Current Visit: Yes Status: Acute (2) Sedative, hypnotic, or anxiolytic withdrawal Current Visit: Yes Status: Acute (3) Opioid dependence on agonist therapy Current Visit: Yes Status: Acute (4) Sedative dependence Current Visit: Yes Status: Acute (5) Cocaine dependence Current Visit: Yes Status: Acute (6) Nicotine dependence Current Visit: Yes Status: Acute Qualifiers: Nicotine product type: cigarettes Substance use status: uncomplicated Qualified Code(s): F17.210 - Nicotine dependence, cigarettes, uncomplicated (7) Drug-induced mood disorder Current Visit: Yes Status: Acute (8) Open abdominal wall wound Current Visit: Yes Status: Acute Qualifiers: Encounter type: initial encounter Qualified Code(s): S31.109A - Unspecified open wound of abdominal wall, unspecified quadrant without penetration into peritoneal cavity, initial encounter (9) AIDS Current Visit: Yes Status: Chronic - Initial Treatment Plan Initial Treatment Plan: Psychoeducation.Detoxification.Observation.
[2016-06-18] MEDS: diphenhydrAMINE HCL 50 MG CAPSULE PO PRN (22:42)
[2016-06-18] MEDS: THIAMINE HCL 100 MG TABLET (FP) PO SCH (23:56)
[2016-06-19] MEDS: CLINDAMYCIN HCL 150 MG CAPSULE (FP) PO SCH ×4 (00:29→17:39)
[2016-06-19] MEDS ORDERED: METHADONE HCL 5 MG TABLET (FOR DETOX USE ONLY) PO SCH (10:00)
[2016-06-19] MEDS: SULFAMETHOXAZOLE/TRIMETHOPRIM 800MG/160MG D.S. TABLET PO SCH (10:20)
[2016-06-19] MEDS: diazePAM 5 MG TABLET PO SCH ×2 (10:21→23:28)
[2016-06-19] MEDS: PRENATAL VITAMINS W/ FOLIC ACID TABLET (FP) PO SCH (10:21)
[2016-06-19] MEDS: NICOTINE 21 MG/24 HOURS TOPICAL PATCH TD SCH (10:21)
--- NOTE | 2016-06-19 11:41 | EKG ---
Test Reason : Blood Pressure : / mmHG Vent. Rate : 043 BPM Atrial Rate : 043 BPM P-R Int : 152 ms QRS Dur : 088 ms QT Int : 480 ms P-R-T Axes : 072 042 068 degrees QTc Int : 405 ms MARKED SINUS BRADYCARDIA SEPTAL INFARCT (CITED ON OR BEFORE 16-JUN-2016) ABNORMAL ECG WHEN COMPARED WITH ECG OF 16-JUN-2016 21:57, COMPARED TO EKG NO SIGNIFICANT CHANGE IS FOUND Confirmed by LAWSON GABRIEL MD ([id number]) on 06/19/2016 11:41:23 AM Referred By: Confirmed By:LAWSON GABRIEL MD
--- NOTE | 2016-06-19 12:32 | PN ---
S CIWA - CIWA Score Nausea/Vomitin Muscle Tremors: 3 Anxiety: 2 Agitation: 2 Paroxysmal Sweats: 1-Minimal Palms Moist Orientation: 0-Oriented Tacttile Disturbances: 1-Very Mild Itch/Numbness Auditory Disturbances: 1-Very Mild Visual Disturbances: 1-Very Mild Sensitivity Headache: 2-Mild CIWA-Ar Total Score: 16 [facility] Progress Note (SOAP) Subjective: ALERT,IRRITABLE,INTERRUPTED SLEEP,TREMOR Objective: 06/19/16 12:31 Vital Signs Temperature 97 F L 06/19/16 10:01 Pulse Rate 115 H 06/19/16 10:01 Respiratory Rate 18 06/19/16 10:01 Blood Pressure 108/65 06/19/16 10:01 O2 Sat by Pulse Oximetry (%) Laboratory Last Values WBC 3.7 K/mm3 (4.0-10.0) L 06/17/16 09:30 RBC 4.43 M/mm3 (4.00-5.60) 06/17/16 09:30 Hgb 13.6 GM/dL (11.7-16.9) 06/17/16 09:30 Hct 38.8 % (35.4-49) 06/17/16 09:30 MCV 87.6 fl (80-96) 06/17/16 09:30 MCHC 35.1 g/dl (32.0-35.9) 06/17/16 09:30 RDW 13.4 % (11.9-15.9) 06/17/16 09:30 Plt Count 86 K/MM3 (134-434) L 06/17/16 09:30 MPV 10.0 fl (7.5-11.1) D 06/17/16 09:30 Sodium 138 mmol/L (136-145) 06/17/16 07:30 Potassium 4.7 mmol/L (3.5-5.1) 06/17/16 07:30 Chloride 105 mmol/L (98-107) 06/17/16 07:30 Carbon Dioxide 25 mmol/L (21-32) 06/17/16 07:30 Anion Gap 8 (8-16) 06/17/16 07:30 BUN 16 mg/dL (7-18) 06/17/16 07:30 Creatinine 0.6 mg/dL (0.7-1.3) L 06/17/16 07:30 Creat Clearance w eGFR > 60 (>60) 06/17/16 07:30 POC Glucometer 230 UNITS (()) 06/18/16 16:41 Random Glucose 230 mg/dL (74-106) H D 06/17/16 07:30 Calcium 8.2 mg/dL (8.5-10.1) L 06/17/16 07:30 Total Bilirubin 0.5 mg/dL (0.2-1.0) D 06/17/16 07:30 AST 49 U/L (15-37) H 06/17/16 07:30 ALT 35 U/L (12-78) 06/17/16 07:30 Alkaline Phosphatase 129 U/L (45-117) H 06/17/16 07:30 Total Protein 6.9 g/dl (6.4-8.2) 06/17/16 07:30 Albumin 3.0 g/dl (3.4-5.0) L 06/17/16 07:30 RPR Titer Nonreactive (NONREACTIVE) 06/17/16 07:30 Assessment: 06/19/16 12:32 WITHDRAWAL SYMPTOM BGM 116 Plan: CONTINUE DETOX,BGM MONITORING
[2016-06-19] MEDS: ACETAMINOPHEN 325 MG TABLET (FP) PO PRN (18:03)
[2016-06-19] MEDS: THIAMINE HCL 100 MG TABLET (FP) PO SCH (23:28)
[2016-06-20] MEDS: CLINDAMYCIN HCL 150 MG CAPSULE (FP) PO SCH ×2 (01:06→06:13)
[2016-06-20 10:17] VITALS: BP 96/64; PULSE 84; TEMP 102
--- NOTE | 2016-06-20 10:35 | PN ---
S Progress Note Note: pt appears sickly; BP 77/37, pulse 84, temp 102.0, pt is aaax3, responsive but lethargic. report given to Dr. Idris ARRIAGA for pt evaluation at [facility].
--- NOTE | 2016-06-20 11:09 | PN ---
[facility] Progress Note Note: pt became hesitant and defiant with not going with EMT to have him transferred to [place] he then began to dress up and stated that he prefers to . This statement was acknowledged with by myself and EMT personnel. Our security was also present on the unit, 911 was informed and pt will now be escorted off the unit by [place] police for evaluation to another facility on his suicidal ideation.
--- NOTE | 2016-06-20 13:19 | DS ---
[facility] Detox Discharge Summary Admission Date: 06/17/16 Discharge Date: 06/20/16 - History Present History: Cocaine Dependence, Opioid Dependence, Sedative Dependence - Physical Exam Results Vital Signs: Vital Signs Temperature 102 F H 06/20/16 10:17 Pulse Rate 84 06/20/16 10:17 Respiratory Rate 20 06/20/16 10:17 Blood Pressure 96/64 06/20/16 10:17 O2 Sat by Pulse Oximetry (%) - Medication Discharge Medications: Ambulatory Orders Clindamycin [Cleocin -] 300 mg PO Q6HPO #28 capsule 06/17/16 Sulfamethoxazole/Trimethoprim [Bactrim Ds Tablet] 1 each PO DAILY #90 tablet - Diagnosis (1) Cocaine dependence Current Visit: Yes Status: Chronic Qualifiers: Substance use status: uncomplicated Qualified Code(s): F14.20 - Cocaine dependence, uncomplicated (2) Drug-induced mood disorder Current Visit: Yes Status: Acute (3) Nicotine dependence Current Visit: Yes Status: Chronic Qualifiers: Nicotine product type: cigarettes Substance use status: uncomplicated Qualified Code(s): F17.210 - Nicotine dependence, cigarettes, uncomplicated (4) Open abdominal wall wound Current Visit: Yes Status: Chronic Qualifiers: Encounter type: initial encounter Qualified Code(s): S31.109A - Unspecified open wound of abdominal wall, unspecified quadrant without penetration into peritoneal cavity, initial encounter (5) Opioid dependence on agonist therapy Current Visit: Yes Status: Acute (6) Opioid dependence with withdrawal Current Visit: Yes Status: Chronic (7) Sedative, hypnotic, or anxiolytic withdrawal Current Visit: Yes Status: Chronic (8) Ulcer Current Visit: Yes Status: Acute (9) AIDS Current Visit: Yes Status: Chronic (10) Onychomycosis of toenail Current Visit: No Status: Chronic (11) Borderline diabetes mellitus Current Visit: No Status: Suspected - AMA Did Patient Leave Against Medical Advice: No (administrative discharge )
[2016-06-21] MEDS ORDERED: METHADONE HCL 10 MG TABLET (FOR DETOX USE ONLY) PO SCH (10:00)
[2016-06-21] MEDS ORDERED: diazePAM 5 MG TABLET PO SCH (10:00)
[2016-06-22] MEDS ORDERED: METHADONE HCL 5 MG TABLET (FOR DETOX USE ONLY) PO SCH (06:00)
== END 2016-06-20 11:13 | disposition short-term general hospital (02) | DRG 773 ==
LOC: YASAS 02:34 → Y6N 03:00
PROVIDERS: ADMIT Internal Medicine Addiction Medicine; ATTEND Internal Medicine Addiction Medicine
PROC: HZ2ZZZZ Detoxification Services for Substance Abuse Treatment (ICD-10-PCS; principal; 2016-06-20)
DX: F11.23 Opioid dependence with withdrawal (principal); F13.230 Sedative, hypnotic or anxiolytic dependence with withdrawal, uncomplicated; F14.20 Cocaine dependence, uncomplicated; F17.210 Nicotine dependence, cigarettes, uncomplicated; F19.24 Other psychoactive substance dependence with psychoactive substance-induced mood disorder; E11.9 Type 2 diabetes mellitus without complications; L02.211 Cutaneous abscess of abdominal wall; B35.1 Tinea unguium; B20 Human immunodeficiency virus [HIV] disease
CPT/HCPCS: 36415; 80053; 85027; 86593; 93005; 93010